=== PATIENT | male | born 1985 | race Caucasian/White ===

== ENCOUNTER 2017-02-20 17:15 | Emergency (ER) | payer OTHER ==
[2017-02-20 17:24] VITALS: TEMP 98.8
--- NOTE | 2017-02-20 17:27 | EDPHY ---
H & P Stated Complaint: severed L 2nd digit HPI/ROS: CHIEF COMPLAINT: Left 2nd finger amputation. HISTORY OF PRESENT ILLNESS: The patient is a 31-year-old male who presents with a left 2nd finger amputation just distal to the PIP joint. The injury occurred 30 minutes ago when his finger got caught in a wood-chopping machine. He is able to move the finger well. His other fingers are atraumatic. He has no other complaints at this time. He is up to date on his tetanus shot. No fever, chills, chest pain, shortness of breath, palpitations, vomiting, diarrhea , urinary complaints, headache, lightheadedness. REVIEW OF SYSTEMS: Aside from elements discussed in the HPI, a comprehensive 10-point review of systems was reviewed and is negative. PAST MEDICAL HISTORY: Denies. SOCIAL HISTORY: Here with family. VITAL SIGNS: Reviewed by me; see NN. GENERAL: Well-developed, well-nourished, slightly anxious, pleasant, conversant , no acute respiratory acute distress. HEENT: Head: Atraumatic, normocephalic. Face: Atraumatic. Benign exam. EXTREMITIES: Left index finger: 100% amputation just distal to the PIP joint. Amputation site is clean. Bleeding is well controlled. NEURO: Alert and oriented x3,grossly nonfocal exam. SKIN: Warm and dry, no injuries other than documented above on the finger. Portions of this note were transcribed by a associate medical director. I personally performed a history, physical exam, medical decision making, and confirmed accuracy of information the transcribed note. Source: Patient Exam Limitations: No limitations - Personal History Current Tetanus/Diphtheria Vaccine: Yes Current Tetanus Diphtheria and Acellular Pertussis (TDAP): Yes - Medical/Surgical History Hx Asthma: No Hx Chronic Respiratory Disease: No Hx Diabetes: No Hx Cardiac Disease: No Hx Renal Disease: No Hx Cirrhosis: No Hx Alcoholism: No Hx HIV/AIDS: No Hx Splenectomy or Spleen Trauma: No Other PMH: denies - Social History Smoking Status: Current every day smoker Constitutional: Initial Vital Signs Temperature (C) 37.1 C 02/20/17 17:22 Heart Rate 91 02/20/17 17:22 Respiratory Rate 17 02/20/17 17:22 Blood Pressure 144/91 H 02/20/17 17:22 O2 Sat (%) 96 02/20/17 17:22 O2 Delivery Mode Room Air O2 (L/minute) 1 Allergies/Adverse Reactions: No Known Allergies Allergy (Unverified 02/20/17 17:22) Home Medications: Medication Instructions Recorded NK [No Known Home Meds] 02/20/17 Medical Decision Making ED Course/Re-evaluation: 31-year-old male presents after amputating his 2nd left finger just distal to the PIP on a wood block artist 30 minutes prior to arrival. The finger was brought in on ice. An IV was established. 1gm IV Ancef and 1mg IV Dilaudid administered. 173: Contacted [facility] for consideration of replantation. 1756: I spoke again with Dr. Zimmer; his opinion is that a single digit replantation is not advisable. I discussed this with the patient at this time. He would like a 2nd consultation. 1803: I spoke with [facility]. Dr. Melgar will evaluate the patient in the emergency department at [facility]. Patient understands that Dr. Shaq Briceno will make final decision regarding replantation. Patient will be transferred to [facility] via private vehicle. He is comfortable with this plan. Amputated portion was placed on dry gauze, in a plastic bag, in ice water bath. Patient's index finger was cleaned and dressed with tube gauze dressing. Differential Diagnosis: Differential diagnoses for the patient's symptom complex was considered including but not limited to complete amputation, partial amputation, crush injury, laceration. - Data Points Medications Given: Discontinued Medications Hydromorphone HCl (Dilaudid) 1 mg IVP EDNOW ONE Stop: 02/20/17 17:35 Last Admin: 02/20/17 17:44 Dose: 1 mg Cefazolin Sodium/Dextrose (Ancef 1 Gm (Premix)) 50 mls @ 200 mls/hr IV EDNOW ONE PRN Reason: Protocol Stop: 02/20/17 17:48 Last Admin: 02/20/17 17:43 Dose: 50 mls Departure - Departure Disposition: Home, Routine, Self-Care Clinical Impression: Amputation of left index finger Condition: Good Instructions: Finger Amputation (ED) Additional Instructions: Follow up at [facility] emergency room immediately as we discussed. The emergency physician is expecting you-- Dr. Isabel and the hand surgeon will be Dr. Melgar. Return for any serious worsening of condition. Referrals: NONE *PRIMARY CARE P,. [Primary Care Provider] - As per Instructions Report Scribed for: Karen Genao Report Scribed by: Ash Vazquez Date of Report: 02/20/17 Time of Report: 17:27
[2017-02-20] MEDS ORDERED: HYDROmorphONE/DILAUDID 1 MG/ML SYR IVP ONE (17:34)
[2017-02-20] MEDS ORDERED: ONDANSETRON 4 MG/2 ML VIAL ONE (17:35)
[2017-02-20] MEDS ORDERED: CEFAZOLIN 1 GM/DEXTROSE/50 ML BAG IV ONE (17:35)
[2017-02-20] MEDS ORDERED: HYDROmorphONE/DILAUDID 2 MG/ML INJ ONE (17:35)
[2017-02-20 18:28] VITALS: BP 140/83; PULSE 88; RESP 16; O2SAT 92
== END 2017-02-20 18:20 | disposition short-term general hospital (02) ==
DX: S68.621A Partial traumatic transphalangeal amputation of left index finger, initial encounter (principal); F17.200 Nicotine dependence, unspecified, uncomplicated; W31.2XXA Contact with powered woodworking and forming machines, initial encounter; Y92.69 Other specified industrial and construction area as the place of occurrence of the external cause; Y99.0 Civilian activity done for income or pay; Y93.89 Activity, other specified
CPT/HCPCS: 96374; J0690; J1170; J2405